=== PATIENT | male | born 1985 | race Caucasian/White ===

== ENCOUNTER 2018-11-18 09:06 | Day surgery (SDC) | payer OTHER ==
[~2018-11-18] VITALS: Ht 188 cm; Wt 119.1 kg
[2018-11-18 09:44] VITALS: BP 137/80; PULSE 93; TEMP 98.5
[2018-11-18 11:55] VITALS: BP 121/73; PULSE 74
--- NOTE | 2018-11-18 11:55 | NUR ---
Patient returns to room 2 per cart from PACU and is awake and alert. IV fluids infusing and patient denies pain or nausea. Temp 97.8 and room air sats 98%. Siderails up x2 and call light in reach. Spouse in room. Taking sips of water.
[2018-11-18 12:10] VITALS: BP 129/46; PULSE 73
--- NOTE | 2018-11-18 12:10 | NUR ---
Eating muffin and pudding. Denies pain or nausea.
[2018-11-18 12:25] VITALS: BP 137/68; PULSE 69
--- NOTE | 2018-11-18 12:25 | NUR ---
Room air sats 98%. Drinking water without complaints of pain or nausea.
--- NOTE | 2018-11-18 12:32 | NUR ---
Patient assisted up to the bathroom and is able to void and returns to room. Patient dresses self. Denies pain or nausea.
[2018-11-18 12:33] VITALS: BP 121/73; PULSE 75; TEMP 97.8
--- NOTE | 2018-11-18 12:48 | NUR ---
Given dismissal instructions and voices understanding of home cares and follow up as needed. Instructed to force fluids.
--- NOTE | 2018-11-18 12:53 | NUR ---
Patient dismissed to home per private vehicle driven by spouse and taken to the front door per wheelchair and assisted into car by RN with instructions in hand.
== END 2018-11-18 12:53 | disposition home or self-care (01) ==
LOC: SDCO 09:06
DX: R31.0 Gross hematuria (principal); Z90.79 Acquired absence of other genital organ(s)
CPT/HCPCS: J0690; J1100; J1885; J2405; J2704; J3010; J7120

== ENCOUNTER → 2019-03-22 | Outpatient (CLI) | payer OTHER | LOC: COL.RAD 07:49 | DX: R10.2 Pelvic and perineal pain (principal); R10.32 Left lower quadrant pain | CPT/HCPCS: Q9967 ==